=== PATIENT | female | born 1955 | race Hispanic/Latino ===

== ENCOUNTER 2018-04-27 16:14 | Inpatient (IN) | payer OTHER, MEDICAID ==
[2018-04-27 16:17] VITALS: BMI 34.7
[2018-04-27 17:25] LABS: BASO # 0.04 K/mm3 (0.0-2.0); BASO % 0.5 % (0.0-3.0); EOS # 0.1 (0.0-0.7); GRAN # 5.69 (1.4-6.5); GRAN % 73.9 % (50.0-68.0); HEMOGLOBIN 12.7 g/dL (12.0-16.0); LYMPH # 1.2 (1.2-3.4); LYMPH % 14.9 % (22.0-35.0); MEAN CELL VOLUME 92.9 fl (80.0-105.0); MEAN CORPUSCULAR HGB CONC 34.4 g/dl (31.0-37.0); MEAN PLATELET VOLUME 11.5 fl (7.0-11.0); MONO # 0.8 (0.1-0.6); MONO % 9.7 % (1.0-6.0); RBC 3.97 10^6/uL (3.5-6.1); RED CELL DISTRIBUTION WIDTH 13.4 % (11.5-14.5); WHITE BLOOD COUNT 7.7 10^3/ul (4.5-11.0)
--- NOTE | 2018-04-27 17:29 | RAD ---
PROCEDURE: CHEST RADIOGRAPH, 1 VIEW HISTORY: weakness COMPARISON: Comparison chest dated 03/09/2014. FINDINGS: LUNGS: Clear. PLEURA: No pneumothorax or pleural fluid seen. CARDIOVASCULAR: Mild cardiomegaly OSSEOUS STRUCTURES: No significant abnormalities. VISUALIZED UPPER ABDOMEN: Normal. OTHER FINDINGS: None. IMPRESSION: No acute infiltrates
[2018-04-27 17:34] LABS: INR 1.09 (0.93-1.08); PARTIAL THROMBOPLASTIN TIME 23.7 Seconds (25.1-36.5); PROTHROMBIN TIME 12.4 SECONDS (9.4-12.5)
[2018-04-27 18:02] LABS: ALB/GLOB RATIO 1.4 (1.1-1.8); ALBUMIN 4.3 g/dL (3.0-4.8); ALT/SGPT 136 U/L (7-56); AST/SGOT 64 U/L (14-36); BLOOD UREA NITROGEN 10 mg/dL (7-21); CALCIUM 9.4 mg/dL (8.4-10.5); GFR NON-AFRICAN AMERICAN > 60
[2018-04-27 18:14] LABS: TROPONIN I < 0.01 ng/mL
[2018-04-27] MEDS ORDERED: Potassium Chloride 20 mEq ER Tab PO STA (18:20)
--- NOTE | 2018-04-27 18:52 | ED PDOC ---
Arrival/HPI - General Chief Complaint: Dizziness/Lightheaded Time Seen by Provider: 04/27/18 16:42 Historian: Patient - History of Present Illness Narrative History of Present Illness (Text): 04/27/18 18:49 Patient is a 63 yo female, states past medical history of vertigo, states sudden onset of dizziness and "spinning" as she was "getting my hair washed" half hour prior to arrival. She reports associated nausea. Denies headache. Denies neck pain. Denies speech difficulty. Denies chest pain or palpitations or shortness of breath. Denies any symptoms earlier this morning, states symptoms sudden onset. No cough or congestion or earaches. Time/Duration: Prior to Arrival Symptom Onset: Sudden Past Medical History - Infectious Disease Hx of Infectious Diseases: None - Cardiac Hx Hypertension: Yes - Pulmonary Hx Asthma: Yes Hx Chronic Obstructive Pulmonary Disease (COPD): Yes - Psychiatric Hx Depression: No Hx Emotional Abuse: No Hx Physical Abuse: No Hx Substance Use: No - Surgical History Hx Appendectomy: Yes Hx Hysterectomy: Yes (PARTIAL) Hx Tonsillectomy: Yes - Suicidal Assessment Feels Threatened In Home Enviroment: No Family/Social History Family/Social History: Unknown Family HX Smoking Status: Never Smoked Hx Alcohol Use: Yes Hx Substance Use: No Hx Substance Use Treatment: No Allergies/Home Meds Allergies/Adverse Reactions: Allergies tetracycline Allergy (Verified 04/27/18 16:18) RASH Home Medications: Home Meds Medication Instructions Recorded Confirmed Metoprolol Tartrate [Lopressor] 200 mg PO BID 04/28/12 03/09/14 Triamterene [Dyrenium] 37.5 mg PO DAILY 04/28/12 03/09/14 Trazodone HCl 100 mg PO HS PRN 10/23/12 03/09/14 Review of Systems - Review of Systems Constitutional: absent: Fevers Eyes: absent: Vision Changes, Photophobia ENT: absent: Hearing Changes, Sore Throat Respiratory: absent: SOB, Cough Cardiovascular: absent: Chest Pain, Palpitations Gastrointestinal: Nausea. absent: Abdominal Pain, Vomiting, Appetite Changes Genitourinary Female: absent: Dysuria, Frequency Musculoskeletal: absent: Back Pain, Neck Pain Skin: absent: Rash Neurological: Dizziness, Disequilibrium. absent: Headache, Focal Weakness, Gait Changes, Speech Changes, Facial Droop, Seizure Endocrine: absent: Polyuria Hemo/Lymphatic: absent: Easy Bleeding Psychiatric: absent: Depression Physical Exam Vital Signs Reviewed: Yes Vital Signs Temp Pulse Resp BP Pulse Ox 04/27/18 16:30 98.6 F 67 18 159/99 H 95 Temperature: Afebrile Blood Pressure: Hypertensive Appearance: Positive for: Uncomfortable Pain Distress: Mild Finger Stick Blood Glucose: 114 - Systems Exam Head: Present: Atraumatic Pupils: Present: PERRL Extroacular Muscles: Present: EOMI Mouth: Present: Moist Mucous Membranes Pharnyx: No: ERYTHEMA Neck: Present: Normal Range of Motion, Trachea Midline. No: Meningeal Signs, MIDLINE TENDERNESS, Paraspinal Tenderness, Lymphadenopathy, Bruit Respiratory/Chest: Present: Clear to Auscultation. No: Respiratory Distress Cardiovascular: Present: Regular Rate and Rhythm, Murmurs Abdomen: No: Tenderness, Distention Back: No: CVA Tenderness Upper Extremity: No: Cyanosis Lower Extremity: No: Edema, CALF TENDERNESS Neurological: Present: CN II-XII Intact, Speech Normal, Motor Func Grossly Intact, Normal Sensory Function, Normal Cerebellar Funct, Norm Deep Tendon Reflexes, Memory Normal, Normal 2Pt Descrimination, Other (dizziness reproduced by turning head or laying flat) Psychiatric: Present: Alert, Normal Insight, Normal Concentration. No: Anxious Medical Decision Making ED Course and Treatment: 04/27/18 18:53 Patient with sudden onset of dizziness. On exam, dizziness is "spinning" reproducible with head movements. At this time, no carotid bruits auscultated. No facial droop. Normal speech. No dysmetria. Normal finger to nose. Abdomen soft and nontender. No chest pain or sob. Antivert given. Patient with no improvement of symptoms. CT head ordered. Patient became dizzy when laying flat. She returned to ED, was reassessed, no headache or chest pain, no slurred speech or focal weakness. Nausea reported. IV zofran ordered. Plan to observe, monitor, re attempt head ct. Will endorse to Dr. Sanchez at 1900 for serial exams, ct, disposition. At this time no abdominal pain. LFTs elevated, she has prior history of this on review of past labs, patient with abdominal discomfort with serial exams. - Lab Interpretations Lab Results: 04/27/18 17:15 04/27/18 17:14 Lab Results 04/27/18 17:15: PT 12.4, INR 1.09 H, APTT 23.7 L 04/27/18 17:15: WBC 7.7, RBC 3.97, Hgb 12.7, Hct 36.9, MCV 92.9, MCH 32.0, MCHC 34.4, RDW 13.4, Plt Count 227, MPV 11.5 H, Gran % 73.9 H, Lymph % (Auto) 14.9 L , [place] % (Auto) 9.7 H, Eos % (Auto) 1.0 L, Baso % (Auto) 0.5, Gran # 5.69, Lymph # (Auto) 1.2, [place] # (Auto) 0.8 H, Eos # (Auto) 0.1, Baso # (Auto) 0.04 04/27/18 17:14: Sodium 142, Potassium 3.5 L, Chloride 104, Carbon Dioxide 25, Anion Gap 17, BUN 10, Creatinine 0.7, Est GFR ( Amer) > 60, Est GFR (Non- Af Amer) > 60, Random Glucose 122 H, Calcium 9.4, Total Bilirubin 1.1, AST 64 H D, ALT 136 H, Alkaline Phosphatase 97, Lactate Dehydrogenase 531, Total Creatine Kinase 54, Troponin I < 0.01, Total Protein 7.3, Albumin 4.3, Globulin 3.1, Albumin/Globulin Ratio 1.4 04/27/18 16:27: POC Glucose (mg/dL) 114 H - RAD Interpretation Radiology Orders: 04/27/18 16:47 HEAD W/O CONTRAST [CT] Stat 04/27/18 16:50 CHEST ONE VIEW [RAD] Stat - EKG Interpretation EKG Interpretation (Text): EKG at 16:22 normal sinus rhythm rate of [address] elevations Interpreted by ED Physician: Yes Type: 12 lead EKG - Medication Orders Current Medication Orders: Discontinued Medications Meclizine HCl (Antivert) 25 mg PO ONCE ONE Stop: 04/27/18 16:52 Last Admin: 04/27/18 17:13 Dose: 25 mg Ondansetron HCl (Zofran Inj) 4 mg IVP ONCE ONE Stop: 04/27/18 18:20 Last Admin: 04/27/18 18:30 Dose: 4 mg IVP Administration Document 06/23/18 18:30 GMD (Rec: 04/27/18 18:30 GMD [id number]) Charges for Administration # of IVP Administrations 1 Potassium Chloride (K-Dur 20 Meq Er Tab) 20 meq PO STAT STA Stop: 04/27/18 18:21 Last Admin: 04/27/18 18:30 Dose: 20 meq Disposition/Present on Arrival - Present on Arrival Any Indicators Present on Arrival: No History of DVT/PE: No History of Uncontrolled Diabetes: No Urinary Catheter: No History of Decub. Ulcer: No History Surgical Site Infection Following: None - Disposition Have Diagnosis and Disposition been Completed?: Yes Diagnosis: Dizziness Disposition Time: 19:00 Patient Plan: Observation Condition: FAIR Referrals: FAMILY PROVIDER,NO [Primary Care Provider] - Follow up with primary
[2018-04-27] MEDS ORDERED: Sodium Chloride 0.9% 1,000 ML IV STA (23:36)
[2018-04-28] MEDS ORDERED: EnalaprilAT 1.25 mg/ml Inj IVP STA (00:33)
--- NOTE | 2018-04-28 01:00 | CP.PCM.PN ---
Subjective - Date & Time of Evaluation Date of Evaluation: 04/28/18 Time of Evaluation: 00:15 - Subjective Subjective: Pt seen stat for her c/o headache,dizziness,nausea and high BP noted in both arms(211/124). She was admitted earlier today with Dx of intractable vertigo after evaluation for similar symptoms.BP in the ER was 159/99 A cat scan of the head was ordered but it could not be done as pt could not lay down flat on the cat scan table. PMH:Hypertension,Vertigo Objective - Vital Signs/Intake and Output Vital Signs (last 24 hours): Temp Pulse Resp BP Pulse Ox 98.6 F 74 18 148/85 99 04/27/18 16:30 04/27/18 22:15 04/27/18 22:15 04/27/18 22:15 04/27/18 22:15 - Medications Medications: Current Medications Sodium Chloride (Sodium Chloride 0.9%) 1,000 mls @ 100 mls/hr IV .Q10H STA Stop: 04/28/18 09:35 Ondansetron HCl (Zofran Inj) 4 mg IVP Q6H PRN PRN Reason: Nausea/Vomiting Trazodone HCl (Desyrel) 100 mg PO HS PRN PRN Reason: DEPRESSION - Labs Labs: PT 12.4 SECONDS (9.4-12.5) 04/27/18 17:15 INR 1.09 (0.93-1.08) H 04/27/18 17:15 APTT 23.7 Seconds (25.1-36.5) L 04/27/18 17:15 - Constitutional Appears: No Acute Distress, Other (Pt is obese) - Head Exam Head Exam: NORMAL INSPECTION - Eye Exam Eye Exam: PERRL - ENT Exam ENT Exam: Mucous Membranes Moist - Neck Exam Neck Exam: Normal Inspection - Respiratory Exam Respiratory Exam: Clear to Ausculation Bilateral - Cardiovascular Exam Cardiovascular Exam: REGULAR RHYTHM - GI/Abdominal Exam GI & Abdominal Exam: Soft, Normal Bowel Sounds. absent: Tenderness - Extremities Exam Extremities Exam: Normal Inspection. absent: Calf Tenderness - Neurological Exam Neurological Exam: Alert, Awake, Oriented x3 Additional comments: no gross deficit - Psychiatric Exam Psychiatric exam: Anxious - Skin Skin Exam: Dry, Warm Assessment and Plan - Assessment and Plan (Free Text) Assessment: Hypertension Plan: BP 190/110 confirmed by me. Pt given Vasotec 1.25 mg iv . Will get EKG stat,also persuaded pt to go for Cat scan of the head now. EKG done stat showed NSR with no acute or ischemic changes. Since BP is still high 1/2 hr after vasotec was given(190/108),will give pt Clonidine 0.2 mg po . 5:30 AM Cat scan of the head was reported negative for intracranial bleed or infarct. Patient is asymptomatic ,is sleeping now.
--- NOTE | 2018-04-28 10:36 | CT ---
PROCEDURE: CT HEAD WITHOUT CONTRAST. HISTORY: dizziness COMPARISON: None available. TECHNIQUE: Axial computed tomography images were obtained through the head/brain without intravenous contrast. Radiation dose: Total exam DLP = mGy-cm. This CT exam was performed using one or more of the following dose reduction techniques: Automated exposure control, adjustment of the mA and/or kV according to patient size, and/or use of iterative reconstruction technique. FINDINGS: HEMORRHAGE: No intracranial hemorrhage. BRAIN: Mild moderate chronic periventricular white matter ischemic changes. Mild moderate central volume loss evidenced by disproportionate enlargement of the ventricles compared sulci. VENTRICLES: No obstructive hydrocephalus CALVARIUM: Unremarkable. PARANASAL SINUSES: Unremarkable as visualized. No significant inflammatory changes. MASTOID AIR CELLS: Unremarkable as visualized. No inflammatory changes. OTHER FINDINGS: None. IMPRESSION: No acute intracranial hemorrhage. Mild moderate chronic white matter ischemic changes. Moderate central volume loss.
--- NOTE | 2018-04-28 13:41 | CARD ---
APPROVED REPORT EKG Measurement Heart [id number] KS 170P30 [id number] <Conclusion> Normal sinus rhythm Normal ECG
--- NOTE | 2018-04-28 13:44 | CARD ---
APPROVED REPORT EKG Measurement Heart [id number] [place] 180P40 [id number] <Conclusion> Normal sinus rhythm Normal ECG
--- NOTE | 2018-04-29 03:59 | HP ---
CHIEF COMPLAINT AND HISTORY OF PRESENT ILLNESS: This is a 63-year-old female who is coming into the hospital with complaints of dizziness. The patient has history of vertigo. She states that she started having sudden dizziness and it was improving. She felt like everything was spinning. She states that it happened half hour prior to coming into the hospital. Denies any nausea. No chest pain. No shortness of breath. No weakness in the arms or the legs. No dysarthria. No dysphagia. She states that she has difficult time walking because of the spinning sensation. She has a history of COPD. No other significant medical history. REVIEW OF SYSTEMS: All of the review of systems are within normal limits except what was mentioned. ALLERGIES: TO TETRACYCLINE. HOME MEDICATIONS: Trazodone, triamterene, Lopressor. PAST SURGICAL HISTORY: Hysterectomy and tonsillectomy. SOCIAL HISTORY: She does smoke. She drinks socially. PAST MEDICAL HISTORY: COPD and hypertension. PHYSICAL EXAMINATION: VITAL SIGNS: Temperature is 98.6, pulse of 67, blood pressure 169/99, respirations 18, O2 saturation is 95%. GENERAL: The patient lying in bed, uncomfortable, and in no acute distress. HEENT: Atraumatic and normocephalic. Anicteric sclerae. Moist mucosa. [place] conjunctivae. No oral lesions. NECK: No JVD, anterior and posterior adenopathy, thyromegaly, or bruits. CARDIOVASCULAR: S1 and S2 regular. No murmur, rubs, or gallop. LUNGS: Clear to auscultation bilaterally. No wheezes, rales, or rhonchi. ABDOMEN: Bowel sounds are positive. Soft, nontender, and nondistended. No hepatosplenomegaly. No rebound and no guarding. EXTREMITIES: No cyanosis, clubbing, or edema. NEUROLOGIC: No facial asymmetry. Tongue is midline. No uvula deviation. Power is 5/5 upper extremity and lower extremity. Sensation intact in upper extremity and lower extremity. PSYCHIATRIC: She is awake, alert, and oriented x3. No anxiety or depression. She has normal affect. GENITOURINARY: No CVA tenderness. VASCULAR: 2+ pulses in the carotid pulses and pedal pulses. SKIN: No erythema or nodules. SPINE: Shows normal curvature. LABORATORY DATA: Patient's labs have been reviewed. White count of 7.7. INR is 1.09. Potassium 3.5. Troponin is 0.01. AST is 64, ALT is 136. Chest x-ray done shows no acute infiltrates. CT of the head done shows no acute hemorrhage. ASSESSMENT: 1. Vertigo. 2. Hypertension. 3. Chronic obstructive pulmonary disease. PLAN: The patient was admitted to the hospital. She was placed on Antivert. This morning, she states that she is having improving of her symptoms. She also had significantly elevated blood pressure. She was given clonidine and blood pressure did improve. The patient also started on lisinopril for her hypertension. She is on a heart-healthy diet. The patient is going to need physical therapy. She will also be seen by Neurology. I will get Dr. Miles. She is going to be placed on Zofran. We will continue to follow closely. Mulugeta Aguirre MD
[2018-04-29 08:40] VITALS: O2SAT 96
[2018-04-29 10:50] LABS: ALB/GLOB RATIO 1.3 (1.1-1.8); ALBUMIN 3.9 g/dL (3.0-4.8); ALT/SGPT 132 U/L (7-56); AST/SGOT 110 U/L (14-36); BLOOD UREA NITROGEN 17 mg/dL (7-21); CALCIUM 9.3 mg/dL (8.4-10.5); GFR NON-AFRICAN AMERICAN > 60
[2018-04-29 10:55] LABS: B-TYPE NATRIURETIC PEPTIDE 149 pg/mL (0-450)
--- NOTE | 2018-04-29 13:16 | PN ---
DATE: 04/29/2018 This is a 63-year-old white female with history of hypertension, COPD. The patient admitted to the hospital with severe episode of dizziness recurrently, occurring every hours at home. Initially, the patient had a passerby in the street call 911, was taken to the Emergency Room. The patient had multiple attempts at CT, every time having repeat episode of severe lightheadedness and dizziness with nausea. Eventually, CT was done, which was normal. The patient continues to have episodes in the hospital and also spiking blood pressure in the hospital. The patient has a family history of cerebral hemorrhage from hypertension. Her laboratory data was unremarkable except for potassium of 3.5. Her blood pressure today is 141/87, temperature is 98, pulse is 59. The patient is awake and alert. She does have positive Romberg, unable to hold her balance. She has no nystagmus noted. She has no tinnitus or hearing loss. She will have an MRI of the brain to rule out TIA versus cerebellar pathology. She also will have a carotid Doppler done. She states that when she had put her head back in the sink at the headrest that she became severely lightheaded and dizzy. The brain showed some [id number] chronic periventricular and white matter ischemic changes. There is no acute intracranial hemorrhage. There is moderate central volume loss, otherwise unremarkable. She did have a chest x-ray in the hospital, which was read as no acute infiltrates. Laboratory data have been unremarkable. She does have an elevated blood sugar of 122, elevated AST of 64 and ALT of 136. Troponin was negative. We are waiting a repeat potassium, magnesium, MRI of the brain, CT, ultrasound of the carotid and vertebrals. Cardiology and neurological consultation. Hair Hodgson MD
[2018-04-29] MEDS ORDERED: Dexamethasone 2 MG in Sodium Chloride 0.9% 50 ML IV ONE (13:29)
--- NOTE | 2018-04-29 14:17 | CON ---
DATE: 04/29/2018 NEUROLOGY CONSULT CHIEF COMPLAINT: Dizziness. HISTORY OF PRESENT ILLNESS: This is a 63-year-old woman with past medical history of hypertension and COPD, who presented to the hospital with sudden onset of dizziness, started spinning sensation of the room, especially when getting up from the certain position and turn her head in the right and left directions. She has had this similar episode about many years ago. She did have the elevated diastolic and systolic blood pressures, which are currently being managed. CAT scan of the head showed no acute intracranial abnormality. No focal neurological deficits seen on examination. PAST MEDICAL HISTORY: As above. SOCIAL HISTORY: No illicit drug use, smoking or EtOH abuse. ALLERGIES: TETRACYCLINE. FAMILY HISTORY: Noncontributory. REVIEW OF SYSTEMS: Fourteen-point review of systems is negative except as per the HPI. MEDICATIONS: Reviewed by nurses' reconciliation sheet. PERTINENT LABORATORY DATA: Sodium is 141, potassium 4.2, chloride 101, carbon dioxide 29, BUN of 17, creatinine 0.8, random glucose of 105. She has elevated AST of 110 and elevated ALT of 132. PHYSICAL EXAMINATION: VITAL SIGNS: Temperature of 98, pulse rate of 67, blood pressure /92, respiratory rate of 18, oxygen saturation 96% by room air. GENERAL: The patient is sitting up in bed, in no acute distress. HEENT: Atraumatic, normocephalic. PERRLA. Extraocular muscles intact. NECK: Supple. No JVD. No adenopathy noted. LUNGS: Clear to auscultation. No adventitious sounds. HEART: S1, S2. Normal rate and rhythm. No murmurs, rubs or gallops. ABDOMEN: Soft, nontender and nondistended. Bowel sounds are present. EXTREMITIES: No clubbing. No cyanosis. Peripheral pulses 2+ felt bilaterally. NEUROLOGIC: The patient is alert and oriented to person, place, month and year. Speech is fluent without any errors. Cranial nerves II through XII intact. Motor exam: Moves all extremities equally. Toes are downgoing bilaterally. Sensory exam: Light touch, pinprick, proprioception and vibration are intact. DTRs are 2+ throughout. No dysmetria noted. Gait is deferred for now. ASSESSMENT AND PLAN: This is a 63-year-old woman with history of chronic obstructive pulmonary disease, hypertension, who presents with dizziness, sudden onset and with some mild nausea and spinning sensation of the room. Her dizziness is likely secondary to hypertensive urgency with underlying benign positional vertigo. No dysmetria noted on neurologic exam. CAT scan of the head showed no acute intracranial abnormalities. At this time, I will recommend, 1. One dose of dexamethasone 2 mg IV push x1 dose for the underlying vertigo. 2. Meclizine 25 mg p.o. t.i.d. p.r.n. for the acute onset of dizziness. 3. MRI of the brain to see any structural abnormalities in the brainstem causing dizziness. 4. Recommend aspirin 81 mg p.o. daily and Lipitor 40 mg p.o. daily for stroke prevention. 5. She will need outpatient vestibular therapy for underlying positional vertigo. 6. Keep her systolic blood pressure in 130s-140s, diastolic in 70s-80s. Continue current present medical management. Thank you for this consult. Brock Miles MD
[2018-04-29] MEDS ORDERED: Gadodiamide 287 MG/ML VIAL (15ML) IV ONE (15:58)
--- NOTE | 2018-04-29 16:47 | US ---
HISTORY: Elevated LFTs COMPARISON: None. TECHNIQUE: Grayscale imaging was performed. FINDINGS: LIVER: Measures 17.4 cm. There is diffuse increased echogenicity of the liver parenchyma. No mass. No intrahepatic bile duct dilatation. GALLBLADDER: There are no gallstones, wall thickening or pericholecystic fluid. The sonographic Deluca's sign is negative. COMMON BILE DUCT: Measures 3.0 mm. No stones. No dilatation. PANCREAS: Normal in size and echotexture. No mass. No ductal dilatation. RIGHT KIDNEY: Measures 10.0cm. Normal echogenicity. No calculus, mass, or hydronephrosis. LEFT KIDNEY: Measures 9.4cm. Normal echogenicity. No calculus, mass, or hydronephrosis. SPLEEN: Normal in size and contour. No mass. AORTA: No aneurysmal dilatation. IVC: Unremarkable. OTHER FINDINGS: None. IMPRESSION: Mild hepatomegaly. Diffuse increased echogenicity in the liver may reflect hepatic steatosis however parenchymal infectious/ inflammatory etiologies cannot be entirely excluded. Clinical and laboratory correlation is advised. No cholelithiasis or biliary dilatation.
--- NOTE | 2018-04-29 18:14 | MRI ---
PROCEDURE: MRI BRAIN WITH AND WITHOUT CONTRAST HISTORY: High blood pressure with headache and dizziness. COMPARISON: Comparison made with CT scan of brain 04/24/2014. TECHNIQUE: Multiplanar, multisequence MR images of the brain were obtained with and without intravenous contrast enhancement.15 cc of gadolinium contrast injected for this examination. FINDINGS: HEMORRHAGE: No acute parenchymal, subarachnoid or extra-axial hemorrhage. . No evidence of hemosiderin deposition identified on gradient echo weighted sequence. DWI: No evidence of an acute or early subacute infarction. . BRAIN PARENCHYMA: Mild diffuse/confluent chronic periventricular white matter ischemic changes seen extending peripherally into the deep white matter both cerebral hemispheres. In addition, there are multiple small chronic appearing lacunar type infarcts scattered about both cerebral hemispheres as well as the basal nuclei. None of these changes exhibit restricted diffusion. Small colloid cyst located at the junction of the foramen of [place] which is well seen on this exam as compared to the prior CT scan. Moderate central volume loss evidenced by disproportionate enlargement of the ventricles compared the sulci. . ENHANCEMENT: No enhancing parenchymal nor extra-axial masses or collections. No evidence of abnormal meningeal enhancement. VENTRICLES: No obstructive hydrocephalus. CRANIUM: Unremarkable. ORBITS: Orbits and contents are unremarkable. PARANASAL SINUSES/MASTOIDS: Clear VASCULAR SYSTEM: Visualized major vascular flow voids at skull base patent. OTHER FINDINGS: None . IMPRESSION: No evidence of acute intracranial hemorrhage or infarct. Chronic appearing white matter ischemic and basal nuclei ischemic changes as described. No enhancing lesions seen. Small nonenhancing small colloid cyst. Mild central volume loss.
--- NOTE | 2018-04-29 19:57 | US ---
PROCEDURE: Bilateral carotid artery duplex ultrasound HISTORY: Carotid stenosis PHYSICIAN(S): Fahad Meier MD. TECHNIQUE: Duplex sonography and color-flow Doppler were used to evaluate the carotid bifurcations and limited segments of the vertebral arteries bilaterally. FINDINGS: The exam is somewhat limited by body habitus. There is mild smooth hypoechoic plaque noted at the carotid bifurcations bilaterally. The peak systolic velocity in the proximal right internal carotid artery is 70 cm/sec. This corresponds to a 20 to 39% proximal right ICA stenosis. Normal systolic velocities are noted in the proximal right external carotid artery. There is antegrade flow in the right vertebral artery. The peak systolic velocity in the proximal left internal carotid artery is 60 cm/sec. This corresponds to a 20 to 39% proximal left ICA stenosis. Normal systolic velocities are noted in the proximal left external carotid artery. There is antegrade flow in the left vertebral artery. IMPRESSION: 1. Bilateral 20-39% proximal ICA stenoses. 2. Antegrade flow in both vertebral arteries.
[2018-04-30 08:12] VITALS: BP 153/101; PULSE 66; TEMP 97.9
[2018-04-30 08:18] VITALS: RESP 18
--- NOTE | 2018-04-30 11:12 | CON ---
DATE: 04/30/2018 INDICATIONS: Vertigo, hypertension. HISTORY OF PRESENT ILLNESS: This is a 63-year-old woman admitted on the 04/27/2018 with acute vertigo which began while she was having her hair done and she was lying back to have her her hair washed. The symptoms were severe and associated with nausea and vomiting. Her symptoms continued and she came to the Emergency Room. In the Emergency Room, she was referred for a CAT scan and had similar difficulties lying down for a CAT scan. She has been treated with steroids and Antivert and has improved. This morning, the symptoms are better. She is undergoing a neurologic evaluation. She denies chest pain, shortness of breath, orthopnea, PND, syncope, palpitations, edema, fever, chills, cough, sputum production, hemoptysis, abdominal pain, diarrhea, constipation, melena. There is a history of vertigo in the past as well. PAST MEDICAL HISTORY: Also notable for hypertension, COPD, she is a smoker. She has been found to have abnormal liver function test and abnormal liver on imaging studies, possibly fatty liver. There is no history of rheumatic fever, myocardial infarction, angina, congestive heart failure, arrhythmia, diabetes or gout. MEDICATIONS: At the time of admission include clonidine, Lopressor, amlodipine, trazodone, Tylenol, lisinopril. ALLERGIES: SHE NOTES AN ALLERGY TO TETRACYCLINE. SOCIAL HISTORY: She lives at home, she is ambulatory. She is a smoker. She does drink alcohol. There is no substance abuse. FAMILY HISTORY: Notable for hypertension and stroke. REVIEW OF SYSTEMS: Ten-point review of systems, otherwise, unremarkable except as noted above. PHYSICAL EXAMINATION: GENERAL: She is a well-developed woman, lying in bed on Telemetry, in no acute distress. VITAL SIGNS: She is in sinus rhythm, 66 beats per minute. She is afebrile. Blood pressure this morning 153/101, respirations 12 to 19, O2 sat 96% on room air. HEENT: Reveals no neck vein distention, thyromegaly or carotid bruits. Mucous membranes moist. Conjunctivae pink. NECK: Supple. LUNGS: Lung caballero clear. HEART: Revealed a regular rhythm. Normal first and second heart sounds. ABDOMEN: Soft. Bowel sounds are present. No mass, organomegaly, tenderness, rebound, guarding, CVA tenderness or palpable abdominal aortic aneurysm. EXTREMITIES: Revealed no cyanosis, clubbing or edema. NEUROLOGICAL: Awake, alert and oriented. PSYCHIATRIC: Normal as to mood and affect. SKIN: Warm and dry. No rash or cellulitis. LABORATORY AND IMAGING: A CT scan of the head was unremarkable. A brain MRI revealed no evidence of acute intracranial hemorrhage or infarct, chronic-appearing white matter ischemic and basal nuclei ischemic changes as described, etc. EKG demonstrated regular sinus rhythm, LVH by voltage, Q-wave in III, no change from the previous cardiogram. An abdominal ultrasound revealed mild hepatomegaly, diffuse increased echogenicity in the liver, etc., see report. A carotid ultrasound revealed bilateral 20 to 39% ICA stenoses, antegrade flow in both vertebral arteries. CBC is unremarkable. PT/INR, PTT unremarkable. Electrolytes are notable for potassium of 3.5 initially, repeat 4.3; blood sugar of 122 and 105, abnormal LFTs as noted, CK 54, troponin less than 0.01, BNP 149. IMPRESSION: Joanne Page is a 63-year-old woman with acute vertigo, which seems to be positional triggered by having her hair done and moving her head in certain positions, such as, lying down for the CAT. The symptoms have improved with treatment, she is undergoing a neurologic evaluation. She is hypertensive and has abnormal liver functions. PLAN: At this time, I will order an echocardiogram. I will increase her amlodipine to 5 mg b.i.d. and we can resume metoprolol. An ENT consultation should be considered. Vestibular therapy is advised. She can be out of bed. I will follow along with you. I will make additional recommendations based on her clinical course. As a smoker, I would also consider outpatient nuclear stress testing. Kvng Alvarez MD MTDShanice
--- NOTE | 2018-05-01 07:04 | DS ---
HISTORY OF PRESENT ILLNESS: A 63-year-old white female, admitted to the hospital with lightheadedness, dizziness, nausea, and slight confusion. The patient was found on CT and MRI to have chronic ischemic changes with nothing acute. The patient had carotid Dopplers done, which showed a 20-30% bilateral stenosis. The patient also was found to have elevated liver enzymes and an ultrasound showed fatty liver infiltration. The patient's blood pressure was controlled. Nausea and vomiting subsided with Zofran and dexamethasone. She was seen by Neurology. The patient had less nystagmus, less change in her balance. She was able to ambulate. Blood pressure was controlled with medication. The patient will eventually be able to be discharged home to follow up as an outpatient for a FibroScan for possible liver cirrhosis based on nonalcoholic steatosis. The patient will also be followed up for hypertensive ischemic changes in her MRI and followup for possible for extreme vertigo. FINAL DISCHARGE DIAGNOSES: Vertigo, chronic ischemic brain changes, nonalcoholic steatohepatitis, hypertension, chronic obstructive pulmonary disease and obesity. Hair Hodgson MD
== END 2018-04-30 13:35 | disposition home or self-care (01) | DRG 149 ==
LOC: ED 16:14 → ERH 22:26 → 3RSO 04-28 00:10 → OBSVTOIN 04-29 15:53
PROVIDERS: ADMIT Internal Medicine; ATTEND Internal Medicine
DX: H81.10 Benign paroxysmal vertigo, unspecified ear (principal); I16.0 Hypertensive urgency; K75.81 Nonalcoholic steatohepatitis (NASH); J44.9 Chronic obstructive pulmonary disease, unspecified; F17.200 Nicotine dependence, unspecified, uncomplicated; E66.9 Obesity, unspecified; Z68.34 Body mass index [BMI] 34.0-34.9, adult; Z82.49 Family history of ischemic heart disease and other diseases of the circulatory system

== ENCOUNTER 2019-01-24 13:18 | Outpatient (CLI) | payer OTHER, MEDICAID | END 2019-01-24 13:19 | disposition home or self-care (01) | LOC: RAD 13:18 ==